=== PATIENT | female | born 2000 | race Asian ===

== ENCOUNTER 2025-06-30 04:03 | Emergency (ER) | payer OTHER ==
[~2025-06-30] VITALS: Ht 157.5 cm; Wt 45.8 kg
[2025-06-30 04:31] LABS: VENOUS BASE EXCESS -5.3 (-2.0-2.0); VENOUS HCO3 19.6 MMOL/L (23.0-27.0); VENOUS O2 SATURATION 89.2 % (60.0-80.0); VENOUS PARTIAL PRESSURE CO2 36.4 mmHg (38.0-50.0); VENOUS PARTIAL PRESSURE O2 60.4 mmHg (30.0-50.0); VENOUS PH 7.349 UNITS (7.330-7.430); VENOUS STANDARD HCO3 20.0 MMOL/L; VENOUS TOTAL CO2 20.7 MMOL/L (24.0-28.0)
[2025-06-30 04:35] LABS: BASO # 0.0 10^3/uL (0.0-0.2); BASO % 0.4 % (0.0-1.0); EOS # 0.1 10^3/uL (0.0-0.5); EOS % 0.5 % (0.0-3.0); LYMPH # 3.0 10^3/uL (1.5-5.0); LYMPH % 29.0 % (24.0-44.0); MONO # 0.9 10^3/uL (0.0-0.8); MONO % 8.5 % (2.0-8.0); NEUTROPHILS # 6.4 10^3/uL (1.5-8.5); NEUTROPHILS % 61.4 % (36.0-66.0); PLATELET COUNT, AUTOMATED 335 10^3/uL (150-450)
[2025-06-30] MEDS ORDERED: ISOVUE-370 76% 100 ML VIAL As Ordered ONE (04:46)
[2025-06-30 04:47] LABS: INR 1.05
[2025-06-30] MEDS: MORPHINE 4 MG/ML 1 ML VIAL IV PRN (04:57)
[2025-06-30] MEDS: ONDANSETRON 4MG 2ML VIAL IV ONE (04:57)
[2025-06-30 05:01] LABS: CK-MB VALUE MASS 4.8 NG/ML (<3.6); ETHYL ALCOHOL (ETHANOL) 0.147 % (0.000-0.010)
[2025-06-30 05:03] LABS: ALT/SGPT 100 U/L (7.0-40); AST/SGOT 158 U/L (<34); CALCIUM LEVEL 8.7 MG/DL (8.5-10.1); CARBON DIOXIDE LEVEL 24 MMOL/L (20-31); CHLORIDE LEVEL 108 MMOL/L (98-107); CPK CREATINE PHOSPHOKINASE 214 U/L (34-145); CREATININE FOR GFR 0.68 MG/DL (0.55-1.30); GLOMERULAR FILTRATION RATE > 90.0 (>60); MB/CK RELATIVE INDEX 2.24 (< OR =4); POTASSIUM SERUM 3.5 MMOL/L (3.5-5.1); SODIUM LEVEL 145 MMOL/L (136-145)
[2025-06-30] MEDS: NS (Normal Saline) 0.9% 1,000 ML IV ONE (08:28)
[2025-06-30] MEDS: DERMABOND TOPICAL SKIN ADHESIVE TOP ONE (08:28)
[2025-06-30] MEDS: LIDOCAINE W/EPINEPHrine 1% 20 ML VIAL SC ONE (09:44)
[2025-06-30] MEDS ORDERED: BACI500O8 TOP (09:55)
[2025-06-30] MEDS ORDERED: AMOX875T2 PO (09:55)
[2025-06-30 10:15] VITALS: BP 115/73; TEMP 99.8; O2SAT 99
== END 2025-06-30 10:54 | disposition home or self-care (01) ==
LOC: M ED 04:03
DX: S42.031A Displaced fracture of lateral end of right clavicle, initial encounter for closed fracture (principal); S01.511A Laceration without foreign body of lip, initial encounter; Y92.9 Unspecified place or not applicable; Y93.9 Activity, unspecified; Y99.9 Unspecified external cause status; V49.40XA Driver injured in collision with unspecified motor vehicles in traffic accident, initial encounter; Z79.2 Long term (current) use of antibiotics
CPT/HCPCS: 12011; 70450; 70486; 71045; 71260; 72125; 72170; 73030; 74177; 80047; 80048; 80076; 82077; 82150; 82550; 82553; 82803; 83605; 83690; 84484; 85025; 85610; 85730; 86850; 86900; 86901; 93005; 94760; 96361; 96374; 99285; J2405; Q9967